=== PATIENT | male | born 1950 | race Caucasian/White ===

== ENCOUNTER 2019-08-23 05:43 | Inpatient (IN) ==
[2019-08-23] MEDS ORDERED: DIAZEPAM 5 MG TABLET PO ONE (05:53)
[2019-08-23] MEDS ORDERED: MAGNESIUM SULF RIDER 2 GM in PREMIX 1 EACH IV PRN (05:53)
[2019-08-23] MEDS ORDERED: diphenhydrAMINE CAP 25 MG CAPSULE PO ONE (05:53)
[2019-08-23] MEDS ORDERED: POTASSIUM CHLORIDE RIDER 10 MEQ in PREMIX 1 EACH IV PRN (05:53)
[2019-08-23] MEDS ORDERED: ASPIRIN 325 MG TABLET PO ONE (05:53)
[2019-08-23] MEDS ORDERED: DEXTROSE 5% NACL 0.45% 1,000 ML IV SCH (06:00)
[2019-08-23] MEDS ORDERED: DIAZEPAM 5 MG TABLET ONE (06:21)
[2019-08-23] MEDS ORDERED: diphenhydrAMINE CAP 25 MG CAPSULE ONE (06:22)
[2019-08-23] MEDS ORDERED: HEPARIN/NACL 0.9% 2 UNITS/ML 1,000 ML IV ONE (06:56)
[2019-08-23] MEDS ORDERED: LIDOCAINE 1%/EPI INJ 20 ML VIAL ONE (06:56)
[2019-08-23] MEDS ORDERED: MIDAZOLAM 2 MG/2 ML VIAL ONE (07:36)
[2019-08-23] MEDS ORDERED: fentaNYL 100 MCG/2 ML VIAL ONE (07:37)
[2019-08-23] MEDS ORDERED: NITROGLYCERIN SL 0.4 MG TABLET SL PRN (08:27)
[2019-08-23] MEDS ORDERED: INFLUENZA VIRUS VACCINE 0.5 ML SYRINGE IM ONE (09:29)
[2019-08-23] MEDS: ASPIRIN EC 81 MG TABLET PO SCH (16:10)
[2019-08-23] MEDS: METOPROLOL TARTRATE 25 MG TABLET PO SCH ×2 (16:15→21:30)
[2019-08-23] MEDS ORDERED: MAGNESIUM HYDROXIDE SUSP 30 ML UDCUP PO PRN (16:45)
[2019-08-23] MEDS ORDERED: diphenhydrAMINE CAP 25 MG CAPSULE PO PRN (16:45)
[2019-08-23] MEDS ORDERED: DILTIAZEM CD 240 MG CAPSULE PO SCH (19:00)
[2019-08-23] MEDS ORDERED: LOSARTAN/HCTZ 50-12.5 MG TABLET PO SCH (19:00)
[2019-08-23] MEDS: HYDROmorphone 2 MG/1 ML VIAL IV PRN (20:37)
[2019-08-23] MEDS: LOSARTAN/HCTZ 50-12.5 MG TABLET PO SCH (21:29)
[2019-08-23] MEDS: DILTIAZEM CD 240 MG CAPSULE PO SCH (21:29)
[2019-08-23] MEDS: ATORVASTATIN 80 MG TABLET PO SCH (21:30)
[2019-08-24] MEDS: HYDROmorphone 2 MG/1 ML VIAL IV PRN ×2 (00:21→04:21)
[2019-08-24 04:21] LABS: Basophils # 0.1 10*3/uL (0.0-0.2); Basophils % 0.7 % (0.0-0.8); Eosinophils # 0.7 10*3/uL (0.0-0.87); Eosinophils % 6.5 % (0.00-10.9); Hematocrit 43.3 VOL% (42.0-52.0); Hemoglobin 14.1 GM/DL (14.0-18.0); Immature Granulocytes % 0.3 %; Immature Granulocytes Absolute 0.03 #; Lymphocytes # 2.4 10*3/uL (1.4-4.0); Lymphocytes % 22.4 % (21.2-54.2); Mean Corpuscular HGB Conc 32.6 GM/DL (32-36); Mean Corpuscular Volume 90.4 FL (87-102); Mean Platelet Volume 10.9 FL (9.6-12.0); Monocytes % 7.8 % (1.7-12.7); Neutrophils % 62.3 % (38.7-73.9); Platelet Count 244 T/CUMM (130-400); Red Blood Count 4.79 MC/CUMM (3.8-5.5); Red Cell Distribution Width 14.2 % (9.3-17.3); White Blood Count 10.8 T/CUMM (4-12)
[2019-08-24 04:45] LABS: Osmolality,Calculated 278.5 MOS/KG (273-304)
[2019-08-24] MEDS ORDERED: GLUCAGON 1 MG VIAL IM PRN (06:10)
[2019-08-24] MEDS ORDERED: DEXTROSE 50% 25 GM/50 ML VIAL IV PRN (06:10)
[2019-08-24] MEDS ORDERED: CEFUROXIME INJ 1,500 MG in SYRINGE 1 EACH IV ONE (06:10)
[2019-08-24 06:35] LABS: ABG Base Excess 3.7 MMOL/L (-2.5-2.5); ABG HCO3 27.5 MMOL/L (20-26); ABG Oxygen Saturation 91.2 % (95-100); ABG PH 7.417 (7.35-7.45); ABG PO2 60.8 MM HG (80-95); ABG TCO2 24.8 MMOL/L (23-27); Allen Test Positive; Pt O2 Delivery Device Room Air
[2019-08-24] MEDS: CHLORHEXIDINE 0.12% ORAL RINSE 60 ML BOTTLE SWISH/SPIT SCH ×2 (09:01→21:34)
[2019-08-24] MEDS: ASPIRIN EC 81 MG TABLET PO SCH (09:01)
[2019-08-24] MEDS: CHLORHEXIDINE 4% SOLN 118 ML BOTTLE TOP SCH ×3 (09:01→21:35)
[2019-08-24] MEDS: METOPROLOL TARTRATE 25 MG TABLET PO SCH ×2 (09:01→21:33)
[2019-08-24] MEDS: DILTIAZEM CD 240 MG CAPSULE PO SCH (21:32)
[2019-08-24] MEDS: ATORVASTATIN 80 MG TABLET PO SCH (21:33)
[2019-08-24] MEDS: LOSARTAN/HCTZ 50-12.5 MG TABLET PO SCH (21:33)
[2019-08-25] MEDS ORDERED: VANCOMYCIN 500 MG VIAL ONE (04:20)
[2019-08-25] MEDS ORDERED: PAPAVERINE 60 MG/2 ML VIAL ONE (04:20)
[2019-08-25] MEDS ORDERED: VANCOMYCIN 1,000 MG VIAL ONE (04:21)
[2019-08-25 04:43] LABS: Basophils # 0.1 10*3/uL (0.0-0.2); Basophils % 0.4 % (0.0-0.8); Eosinophils # 0.7 10*3/uL (0.0-0.87); Hematocrit 45.3 VOL% (42.0-52.0); Hemoglobin 14.6 GM/DL (14.0-18.0); Immature Granulocytes % 0.4 %; Immature Granulocytes Absolute 0.05 #; Lymphocytes # 2.1 10*3/uL (1.4-4.0); Lymphocytes % 17.4 % (21.2-54.2); Mean Corpuscular HGB Conc 32.2 GM/DL (32-36); Mean Corpuscular Volume 89.9 FL (87-102); Mean Platelet Volume 10.6 FL (9.6-12.0); Monocytes % 8.8 % (1.7-12.7); Platelet Count 254 T/CUMM (130-400); Red Blood Count 5.04 MC/CUMM (3.8-5.5); Red Cell Distribution Width 14.2 % (9.3-17.3); White Blood Count 11.9 T/CUMM (4-12)
[2019-08-25 05:00] LABS: Calcium 9.4 MG/DL (8.5-10.1); Osmolality,Calculated 278.5 MOS/KG (273-304)
[2019-08-25] MEDS ORDERED: DIAZEPAM 5 MG TABLET PO ONE (05:00)
[2019-08-25] MEDS ORDERED: FAMOTIDINE 20 MG TABLET PO ONE (05:00)
[2019-08-25] MEDS ORDERED: SUFentanil 250 MCG/5 ML AMP ONE (05:57)
[2019-08-25] MEDS ORDERED: MIDAZOLAM 10 MG/2 ML VIAL ONE (05:58)
[2019-08-25] MEDS: METOPROLOL TARTRATE 25 MG TABLET PO SCH ×2 (06:08→09:36)
[2019-08-25] MEDS: CEFUROXIME INJ 1,500 MG in SYRINGE 1 EACH IV ONE ×2 (07:34→09:36)
[2019-08-25 07:52] LABS: ABG Base Excess 0.8 MMOL/L (-2.5-2.5); ABG HCO3 26.4 MMOL/L (20-26); ABG Oxygen Saturation 99.8 % (95-100); ABG PCO2 45.8 MM HG (35-48); ABG PH 7.378 (7.35-7.45); ABG PO2 429.1 MM HG (80-95); ABG TCO2 27.8 MMOL/L (23-27); Glucose Heart Surgery 107 MG/DL (74-106); Hemoglobin Heart Surgery 14.4 G/DL (14.0-18.0); Ionized Calcium Arterial 1.18 MMOL/L (1.21-1.46); PCO2 Patient Temp Arterial 45.8 MMHG; PH Patient Temp Arterial 7.378; PO2 Patient Temp Arterial 429.1 MM HG; Patient Temperature 37 CELCIUS; Potassium Heart/CVR 3.6 MMOL/L (3.5-5.1); Sodium Heart/CVR 136 MMOL/L (135-145)
[2019-08-25 08:53] LABS: Apearance,Urine CLEAR (Clear); Bilirubin,Urine Negative (Negative); Blood, Urine Negative (Negative); Glucose,Urine (UA) Negative (Negative); Ketones,Urine Negative (Negative); Mucus,Urine Occasional /LPF (Occasional); Nitrite,Urine Negative (Negative); Protein,Urine Negative; RBC,Urine 1 /HPF (0-4); Urine Color Yellow (Yellow); Urine Specific Gravity 1.012 (1.001-1.035); Urine Urobilinogen < 2.0 EU/DL (0.2-1.0); WBC,Urine 3 /HPF (0-6)
[2019-08-25] MEDS ORDERED: POTASSIUM CHLORIDE RIDER 100 ML IV ONE (08:59)
[2019-08-25] MEDS ORDERED: NITROPRUSSIDE 50 MG/2 ML VIAL ONE (08:59)
[2019-08-25] MEDS ORDERED: CALCIUM CHLORIDE 1,000 MG/10 ML SYRINGE IV ONE (08:59)
[2019-08-25] MEDS ORDERED: PHENYLEPHRINE DRIP 40 MG/250 ML PREMIX IV ONE (08:59)
[2019-08-25] MEDS ORDERED: SODIUM BICARBONATE 50 MEQ/50 ML VIAL IV ONE ×2 (08:59→10:24)
[2019-08-25] MEDS ORDERED: ALBUMIN 5% 12.5 GM/250 ML VIAL IV ONE ×2 (09:00)
[2019-08-25] MEDS ORDERED: AMINOCAPROIC ACID 5,000 MG/20 ML VIAL ONE (09:05)
[2019-08-25] MEDS ORDERED: PHENYLEPHRINE DRIP 20 MG/250 ML PREMIX IV ONE (09:05)
[2019-08-25] MEDS ORDERED: MINERAL OIL/PETROLATUM OPH OINT 3.5 GM TUBE ONE (09:05)
[2019-08-25] MEDS ORDERED: HEPARIN/NACL 0.9% 2 UNITS/ML 500 ML IV ONE (09:05)
[2019-08-25] MEDS ORDERED: NITROGLYCERIN DRIP 0 MG/0 ML BOTTLE IV ONE (09:05)
[2019-08-25] MEDS ORDERED: CALCIUM CHLORIDE 1,000 MG/10 ML VIAL IV ONE (09:05)
[2019-08-25] MEDS ORDERED: PHENYLEPHRINE 1 MG/10 ML SYRINGE IV ONE (09:06)
[2019-08-25 09:09] LABS: Hemoglobin Heart Surgery 9.9 G/DL (14.0-18.0); PCO2 Patient Temp Venous 40.2 MM HG; PH Patient Temp Venous 7.43; PO2 Patient Temp Venous 45.1 MM HG; Potassium Heart/CVR 4.3 MMOL/L (3.5-5.1); VBG Base Excess 1.6 MEQ/L (0-4); VBG HCO3 26.3 MEQ/L (24-28); VBG Oxygen Saturation 83.8 %; VBG PH 7.415; VBG PO2 48.4 MMHG (17-40)
[2019-08-25] MEDS: SODIUM CHLORIDE 0.9% 1,000 ML IV SCH (09:36)
[2019-08-25] MEDS: ASPIRIN EC 81 MG TABLET PO SCH (09:36)
[2019-08-25] MEDS: CHLORHEXIDINE 0.12% ORAL RINSE 60 ML BOTTLE SWISH/SPIT SCH (09:37)
[2019-08-25 09:40] LABS: Hemoglobin Heart Surgery 10.8 G/DL (14.0-18.0); PH Patient Temp Venous 7.502; VBG Base Excess 2.1 MEQ/L (0-4); VBG Oxygen Saturation 87.2 %; VBG PCO2 37.6 MMHG (41-51); VBG PH 7.457; VBG PO2 51.8 MMHG (17-40)
[2019-08-25] MEDS ORDERED: DEXTROSE 5% KCL 20 MEQ 20 MEQ/1,000 ML BAG IV ONE (10:23)
[2019-08-25] MEDS ORDERED: LIDOCAINE 2% 5 ML VIAL ONE (10:23)
[2019-08-25] MEDS ORDERED: MANNITOL 100 GM/500 ML BAG IV ONE (10:23)
[2019-08-25] MEDS ORDERED: ALBUMIN 25% 25 GM/100 ML VIAL IV ONE (10:24)
[2019-08-25] MEDS ORDERED: PROTAMINE SULFATE 50 MG/5 ML VIAL IV ONE ×3 (10:24→11:37)
[2019-08-25] MEDS ORDERED: MAGNESIUM SULFATE 5 GM/10 ML VIAL IV ONE (10:24)
[2019-08-25] MEDS ORDERED: FUROSEMIDE 20 MG/2 ML VIAL ONE (10:24)
[2019-08-25] MEDS ORDERED: PROTAMINE SULFATE 250 MG/25 ML VIAL IV ONE (10:24)
[2019-08-25] MEDS ORDERED: HEPARIN 10,000 UNIT/10 ML VIAL ONE (10:24)
[2019-08-25] MEDS ORDERED: methylPREDNISolone SOD SUC 1,000 MG/8 ML VIAL ONE (10:24)
[2019-08-25 10:37] LABS: ABG Base Excess -0.5 MMOL/L (-2.5-2.5); ABG Oxygen Saturation 98.8 % (95-100); ABG PCO2 40.1 MM HG (35-48); ABG PH 7.391 (7.35-7.45); ABG TCO2 21.6 MMOL/L (23-27); Glucose Heart Surgery 187 MG/DL (74-106); Hematocrit Heart Surgery 36.2 PERCENT (42-52); Hemoglobin Heart Surgery 11.7 G/DL (14.0-18.0); Ionized Calcium Arterial 1.29 MMOL/L (1.21-1.46); PCO2 Patient Temp Arterial 40.1 MMHG; PH Patient Temp Arterial 7.391; Patient Temperature 37 CELCIUS; Potassium Heart/CVR 3.7 MMOL/L (3.5-5.1); Sodium Heart/CVR 133 MMOL/L (135-145)
[2019-08-25] MEDS ORDERED: AMIODARONE 450 MG/9 ML VIAL IV ONE (11:01)
[2019-08-25] MEDS ORDERED: AMIODARONE INJ 450 MG in DEXTROSE 5% 241 ML IV SCH (11:15)
[2019-08-25] MEDS: PHENYLEPHRINE DRIP 40 MG/250 ML PREMIX IV PRN (11:16)
[2019-08-25] MEDS: LACTATED RINGERS 1,000 ML IV PRN ×3 (11:20→12:52)
[2019-08-25] MEDS ORDERED: DEXTROSE 10% 250 ML BAG IV PRN ×2 (11:37)
[2019-08-25] MEDS ORDERED: CALCIUM CHLORIDE 1,000 MG/10 ML SYRINGE IV PRN (11:37)
[2019-08-25] MEDS ORDERED: INSULIN REGULAR DRIP 100 ML IV SCH (11:37)
[2019-08-25] MEDS ORDERED: INSULIN REGULAR 100 UNIT/ML IV ONE (11:37)
[2019-08-25] MEDS ORDERED: MORPHINE 4 MG/1 ML VIAL IV PRN (11:37)
[2019-08-25] MEDS ORDERED: MAGNESIUM SULF RIDER 2 GM in PREMIX 1 EACH IV PRN (11:37)
[2019-08-25] MEDS ORDERED: LACTATED RINGERS 250 ML IV PRN (11:37)
[2019-08-25] MEDS ORDERED: MAGNESIUM SULF RIDER 4 GM in PREMIX 1 EACH IV PRN (11:37)
[2019-08-25] MEDS ORDERED: MIDAZOLAM 10 MG/2 ML VIAL IV PRN (11:37)
[2019-08-25] MEDS ORDERED: KETOROLAC 30 MG/1 ML VIAL IV SCH (11:37)
[2019-08-25] MEDS ORDERED: ACETAMINOPHEN 650 MG SUPP RECTAL PRN (11:37)
[2019-08-25] MEDS ORDERED: NITROPRUSSIDE 100 MG in DEXTROSE 5% 250 ML IV PRN (11:37)
[2019-08-25] MEDS ORDERED: SODIUM CHLORIDE 0.45% 1,000 ML IV SCH ×2 (11:37)
[2019-08-25] MEDS ORDERED: MORPHINE 10 MG/1 ML VIAL IV PRN (11:37)
[2019-08-25] MEDS ORDERED: INSULIN REGULAR 100 UNIT/ML IV PRN (11:37)
[2019-08-25] MEDS ORDERED: ONDANSETRON 4 MG/2 ML VIAL IV PRN (11:37)
[2019-08-25] MEDS ORDERED: VECURONIUM 10 MG VIAL IV PRN ×2 (11:37)
[2019-08-25] MEDS: ALBUMIN 5% 12.5 GM in PREMIX 1 EACH IV PRN ×3 (11:40→23:00)
[2019-08-25 11:48] LABS: Basophils # 0.1 10*3/uL (0.0-0.2); Basophils % 0.2 % (0.0-0.8); Eosinophils # 0.3 10*3/uL (0.0-0.87); Eosinophils % 1.5 % (0.00-10.9); Hematocrit 35.1 VOL% (42.0-52.0); Hemoglobin 11.2 GM/DL (14.0-18.0); Immature Granulocytes % 1.1 %; Immature Granulocytes Absolute 0.24 #; Lymphocytes # 2.3 10*3/uL (1.4-4.0); Lymphocytes % 10.6 % (21.2-54.2); Mean Corpuscular HGB Conc 31.9 GM/DL (32-36); Mean Corpuscular Volume 91.2 FL (87-102); Mean Platelet Volume 10.6 FL (9.6-12.0); Monocytes % 5.9 % (1.7-12.7); Neutrophils % 80.7 % (38.7-73.9); Platelet Count 201 T/CUMM (130-400); Red Blood Count 3.85 MC/CUMM (3.8-5.5); Red Cell Distribution Width 14.2 % (9.3-17.3); White Blood Count 21.3 T/CUMM (4-12)
[2019-08-25 11:50] LABS: ABG Base Excess -0.7 MMOL/L (-2.5-2.5); ABG HCO3 23.8 MMOL/L (20-26); ABG Oxygen Saturation 97.9 % (95-100); ABG PCO2 37.6 MM HG (35-48); ABG PH 7.407 (7.35-7.45); ABG PO2 99.5 MM HG (80-95); ABG TCO2 21.1 MMOL/L (23-27); Glucose Heart Surgery 146 MG/DL (74-106); Hematocrit Heart Surgery 35.3 PERCENT (42-52); Hemoglobin Heart Surgery 11.5 G/DL (14.0-18.0); Potassium Heart/CVR 3.3 MMOL/L (3.5-5.1)
[2019-08-25] MEDS: POTASSIUM CHLORIDE RIDER 20 MEQ in PREMIX 1 EACH IV PRN ×4 (11:56→16:39)
[2019-08-25 11:57] LABS: INR 1.3; PT Patient Result 14.3 SECS (9.6-12.2); Partial Thromboplastin Time 27.1 SECS (20.8-36.0)
[2019-08-25] MEDS ORDERED: SEVOFLURANE 1 UNIT/15 MINUTE INH ONE (12:03)
[2019-08-25] MEDS ORDERED: GLYCOPYRROLATE 0.4 MG/2 ML VIAL ONE (12:04)
[2019-08-25] MEDS ORDERED: ETOMIDATE 40 MG/20 ML VIAL IV ONE (12:04)
[2019-08-25] MEDS ORDERED: AMIODARONE 150 MG/3 ML VIAL ONE (12:04)
[2019-08-25] MEDS ORDERED: VECURONIUM 10 MG VIAL IV ONE (12:04)
[2019-08-25] MEDS ORDERED: SODIUM CHLORIDE 0.9% 200 ML IV ONE (12:04)
[2019-08-25] MEDS ORDERED: SODIUM CHLORIDE 0.9% 250 ML IV ONE (12:04)
[2019-08-25] MEDS ORDERED: SODIUM CHLORIDE 0.9% 1,000 ML IV ONE (12:04)
[2019-08-25] MEDS ORDERED: LACTATED RINGERS 1,000 ML IV ONE (12:04)
[2019-08-25 12:13] LABS: CKMB % 7.8 %
[2019-08-25 12:15] LABS: Troponin I 7.1 NG/ML (0.00-0.045)
[2019-08-25 12:17] LABS: Albumin 2.8 G/DL (3.4-5.0); Bilirubin,Total 1.3 MG/DL (0.2-1.0); Osmolality,Calculated 280.5 MOS/KG (273-304); Total Protein 5.3 G/DL (6.4-8.3)
[2019-08-25 12:40] LABS: Band Neutrophils 2 % (0-10); Eosinophils 1 % (0-10); Lymphocytes 10 % (20-55); Segmented Neutrophils 84 % (50-85)
[2019-08-25 12:41] LABS: Hypochromasia 1+
[2019-08-25 12:42] LABS: Microcytosis 1+; Platelet Estimate Decreased; Reactive Lymphocytes Slight; Total Cells Counted 100
[2019-08-25 13:20] LABS: ABG Base Excess 0.4 MMOL/L (-2.5-2.5); ABG HCO3 24.7 MMOL/L (20-26); ABG Oxygen Saturation 97.8 % (95-100); ABG PCO2 33.4 MM HG (35-48); ABG PH 7.458 (7.35-7.45); ABG PO2 90.7 MM HG (80-95); ABG TCO2 20.9 MMOL/L (23-27); Glucose Heart Surgery 163 MG/DL (74-106); Hematocrit Heart Surgery 36.6 PERCENT (42-52); Hemoglobin Heart Surgery 11.9 G/DL (14.0-18.0); Potassium Heart/CVR 3.8 MMOL/L (3.5-5.1)
[2019-08-25] MEDS: POTASSIUM CHLORIDE RIDER 10 MEQ in PREMIX 1 EACH IV PRN ×2 (14:05→17:12)
[2019-08-25] MEDS: MIDAZOLAM 2 MG/2 ML VIAL IV PRN ×2 (14:58→16:35)
[2019-08-25 16:21] LABS: ABG Base Excess -0.8 MMOL/L (-2.5-2.5); ABG HCO3 23.7 MMOL/L (20-26); ABG Oxygen Saturation 97.6 % (95-100); ABG PCO2 37.7 MM HG (35-48); ABG PH 7.405 (7.35-7.45); ABG PO2 94.6 MM HG (80-95); ABG TCO2 21.1 MMOL/L (23-27); Glucose Heart Surgery 209 MG/DL (74-106); Hematocrit Heart Surgery 35.1 PERCENT (42-52); Hemoglobin Heart Surgery 11.4 G/DL (14.0-18.0); Potassium Heart/CVR 3.5 MMOL/L (3.5-5.1)
[2019-08-25] MEDS ORDERED: DEXMEDETOMIDINE 200 MCG in SODIUM CHLORIDE 0.9% 48 ML IV PRN (16:43)
[2019-08-25] MEDS: CEFUROXIME INJ 1,500 MG in SYRINGE 1 EACH IV SCH (18:45)
[2019-08-25] MEDS: AMIODARONE INJ 450 MG in DEXTROSE 5% 241 ML IV SCH ×2 (18:48→21:43)
[2019-08-25 19:46] LABS: ABG Base Excess -2.1 MMOL/L (-2.5-2.5); ABG HCO3 22.6 MMOL/L (20-26); ABG Oxygen Saturation 97.1 % (95-100); ABG PCO2 38.2 MM HG (35-48); ABG PO2 90.2 MM HG (80-95); ABG TCO2 20.2 MMOL/L (23-27); Glucose Heart Surgery 181 MG/DL (74-106); Hematocrit Heart Surgery 36.1 PERCENT (42-52); Hemoglobin Heart Surgery 11.7 G/DL (14.0-18.0); Potassium Heart/CVR 3.7 MMOL/L (3.5-5.1)
[2019-08-25 20:09] LABS: CKMB % 5.7 %
[2019-08-25 20:12] LABS: Troponin I 8.16 NG/ML (0.00-0.045)
[2019-08-25] MEDS ORDERED: CHLORHEXIDINE 0.12% ORAL RINSE 60 ML BOTTLE SWISH/SPIT SCH (21:00)
[2019-08-25] MEDS ORDERED: FUROSEMIDE 40 MG/4 ML VIAL IV PRN (22:35)
[2019-08-25 23:41] LABS: ABG Base Excess -2.1 MMOL/L (-2.5-2.5); ABG HCO3 21.8 MMOL/L (20-26); ABG Oxygen Saturation 97.3 % (95-100); ABG PCO2 34.2 MM HG (35-48); ABG PH 7.422 (7.35-7.45); ABG PO2 99.3 MM HG (80-95); ABG TCO2 22.8 MMOL/L (23-27); Glucose Heart Surgery 149 MG/DL (74-106); Hemoglobin Heart Surgery 11.4 G/DL (14.0-18.0); Potassium Heart/CVR 3.5 MMOL/L (3.5-5.1)
[2019-08-26] MEDS: PHENYLEPHRINE DRIP 40 MG/250 ML PREMIX IV PRN (00:35)
[2019-08-26 01:05] LABS: ABG Base Excess -2.4 MMOL/L (-2.5-2.5); ABG HCO3 22.1 MMOL/L (20-26); ABG Oxygen Saturation 93.6 % (95-100); ABG PCO2 36.7 MM HG (35-48); ABG PH 7.397 (7.35-7.45); ABG PO2 70.8 MM HG (80-95); ABG TCO2 23.2 MMOL/L (23-27); Glucose Heart Surgery 155 MG/DL (74-106); Hemoglobin Heart Surgery 11.4 G/DL (14.0-18.0); Potassium Heart/CVR 3.8 MMOL/L (3.5-5.1)
[2019-08-26] MEDS: POTASSIUM CHLORIDE RIDER 10 MEQ in PREMIX 1 EACH IV PRN (02:56)
[2019-08-26 03:59] LABS: ABG Base Excess -0.8 MMOL/L (-2.5-2.5); ABG HCO3 23.7 MMOL/L (20-26); ABG Oxygen Saturation 95.2 % (95-100); ABG PCO2 37.7 MM HG (35-48); ABG PH 7.404 (7.35-7.45); ABG PO2 74.1 MM HG (80-95); ABG TCO2 21.3 MMOL/L (23-27); Glucose Heart Surgery 124 MG/DL (74-106); Hematocrit Heart Surgery 33.4 PERCENT (42-52); Hemoglobin Heart Surgery 10.8 G/DL (14.0-18.0); Potassium Heart/CVR 3.4 MMOL/L (3.5-5.1)
[2019-08-26] MEDS ORDERED: POTASSIUM CHLORIDE RIDER 100 ML IV ONE (04:15)
[2019-08-26] MEDS: POTASSIUM CHLORIDE RIDER 20 MEQ in PREMIX 1 EACH IV PRN ×3 (04:16→04:51)
[2019-08-26 04:29] LABS: Basophils % 0.1 % (0.0-0.8); Hematocrit 33.2 VOL% (42.0-52.0); Hemoglobin 10.5 GM/DL (14.0-18.0); Immature Granulocytes % 0.6 %; Immature Granulocytes Absolute 0.13 #; Lymphocytes # 1.2 10*3/uL (1.4-4.0); Lymphocytes % 5.9 % (21.2-54.2); Mean Corpuscular HGB Conc 31.6 GM/DL (32-36); Mean Corpuscular Volume 91.5 FL (87-102); Mean Platelet Volume 10.9 FL (9.6-12.0); Monocytes % 4.4 % (1.7-12.7); Platelet Count 205 T/CUMM (130-400); Red Blood Count 3.63 MC/CUMM (3.8-5.5); Red Cell Distribution Width 14.1 % (9.3-17.3); White Blood Count 20.8 T/CUMM (4-12)
[2019-08-26 04:51] LABS: Albumin 3.4 G/DL (3.4-5.0); Bilirubin,Direct 0.22 MG/DL (0.0-0.20); Bilirubin,Total 1.1 MG/DL (0.2-1.0); Calcium 8.2 MG/DL (8.5-10.1); Osmolality,Calculated 282.4 MOS/KG (273-304); Total Protein 6.2 G/DL (6.4-8.3)
[2019-08-26 04:52] LABS: CKMB % 6.1 %
[2019-08-26 04:54] LABS: Lymphocytes 4 % (20-55); Platelet Estimate Adequate; Segmented Neutrophils 94 % (50-85); Total Cells Counted 100
[2019-08-26 05:16] LABS: Troponin I 4.8 NG/ML (0.00-0.045)
[2019-08-26] MEDS: CEFUROXIME INJ 1,500 MG in SYRINGE 1 EACH IV SCH (06:51)
[2019-08-26] MEDS ORDERED: MAGNESIUM SULF RIDER 4 GM in PREMIX 1 EACH IV PRN (07:29)
[2019-08-26] MEDS ORDERED: GLUCAGON 1 MG VIAL IM PRN ×2 (07:29)
[2019-08-26] MEDS ORDERED: ZALEPLON 5 MG CAPSULE PO PRN (07:29)
[2019-08-26] MEDS ORDERED: DEXTROSE 50% 25 GM/50 ML VIAL IV PRN (07:29)
[2019-08-26] MEDS ORDERED: DEXTROSE 10% 250 ML BAG IV PRN (07:29)
[2019-08-26] MEDS ORDERED: MAGNESIUM HYDROXIDE SUSP 30 ML UDCUP PO PRN (07:29)
[2019-08-26] MEDS ORDERED: ACETAMINOPHEN 325 MG TABLET PO PRN (07:29)
[2019-08-26] MEDS ORDERED: MAGNESIUM SULF RIDER 2 GM in PREMIX 1 EACH IV PRN (07:29)
[2019-08-26] MEDS ORDERED: ALUMINUM/MAGNES/SIMETH MAX STR 30 ML UDCUP PO PRN (07:29)
[2019-08-26] MEDS ORDERED: ONDANSETRON 4 MG/2 ML VIAL IV PRN (07:29)
[2019-08-26] MEDS: SODIUM CHLOR 0.45% KCL 20 MEQ 20 MEQ/1,000 ML BAG IV SCH (08:35)
[2019-08-26] MEDS: DOCUSATE SODIUM 100 MG CAPSULE PO SCH (08:35)
[2019-08-26] MEDS: PANTOPRAZOLE 40 MG TABLET PO SCH (08:35)
[2019-08-26] MEDS: ASPIRIN EC 325 MG TABLET PO SCH (08:35)
[2019-08-26] MEDS: KETOROLAC 30 MG/1 ML VIAL IV SCH ×3 (08:36→20:50)
[2019-08-26] MEDS: INSULIN REGULAR 100 UNIT/ML SUBCUT SCH ×4 (08:39→20:49)
[2019-08-26] MEDS: oxyCODONE/ACETAMINOPHEN 5-325 MG TABLET PO PRN (09:01)
[2019-08-26] MEDS: FERROUS SULFATE 325 MG TABLET PO SCH (09:03)
[2019-08-26] MEDS: CHLORHEXIDINE 0.12% ORAL RINSE 60 ML BOTTLE SWISH/SPIT SCH ×2 (09:04→20:49)
[2019-08-26] MEDS: POTASSIUM CHLORIDE 20 MEQ TABLET PO PRN ×2 (12:33→13:28)
[2019-08-26] MEDS: ASCORBIC ACID 500 MG TABLET PO SCH ×2 (13:28→20:50)
[2019-08-26] MEDS: AMIODARONE INJ 450 MG in DEXTROSE 5% 241 ML IV SCH (15:28)
[2019-08-26] MEDS ORDERED: CEFUROXIME INJ 1,500 MG in SYRINGE 1 EACH IV ONE (19:00)
[2019-08-26] MEDS: ATORVASTATIN 40 MG TABLET PO SCH (20:50)
[2019-08-26] MEDS ORDERED: ATORVASTATIN 20 MG TABLET PO SCH (21:00)
[2019-08-27] MEDS: INSULIN REGULAR 100 UNIT/ML SUBCUT SCH ×5 (00:11→20:09)
[2019-08-27] MEDS: KETOROLAC 30 MG/1 ML VIAL IV SCH ×4 (02:36→20:46)
[2019-08-27] MEDS: AMIODARONE INJ 450 MG in DEXTROSE 5% 241 ML IV SCH (02:37)
[2019-08-27 05:41] LABS: Basophils % 0.1 % (0.0-0.8); Hematocrit 26.4 VOL% (42.0-52.0); Hemoglobin 8.3 GM/DL (14.0-18.0); Immature Granulocytes % 0.7 %; Immature Granulocytes Absolute 0.12 #; Lymphocytes # 1.4 10*3/uL (1.4-4.0); Lymphocytes % 7.3 % (21.2-54.2); Mean Corpuscular HGB Conc 31.4 GM/DL (32-36); Mean Corpuscular Volume 93.6 FL (87-102); Mean Platelet Volume 11.1 FL (9.6-12.0); Monocytes % 7.5 % (1.7-12.7); Neutrophils % 84.4 % (38.7-73.9); Platelet Count 148 T/CUMM (130-400); Red Blood Count 2.82 MC/CUMM (3.8-5.5); Red Cell Distribution Width 14.7 % (9.3-17.3); White Blood Count 18.4 T/CUMM (4-12)
[2019-08-27] MEDS ORDERED: FUROSEMIDE 40 MG/4 ML VIAL IV ONE (06:00)
[2019-08-27 06:23] LABS: Alanine Aminotransferase 21 U/L (16-61); Albumin 2.7 G/DL (3.4-5.0); Alkaline Phosphatase 61 U/L (45-117); Aspartate Amino Transferase 22 U/L (0-37); Bilirubin,Indirect 0.7 MG/DL (0.0-1.0); Blood Urea Nitrogen 30 MG/DL (7-18); Calcium 7.9 MG/DL (8.5-10.1); Estimated Glom Filtration Rate 106 ML/MIN; Glucose 107 MG/DL (74-106); Osmolality,Calculated 284.4 MOS/KG (273-304); Total Protein 5.4 G/DL (6.4-8.3)
[2019-08-27] MEDS: ASCORBIC ACID 500 MG TABLET PO SCH ×2 (08:57→20:45)
[2019-08-27] MEDS: ASPIRIN EC 325 MG TABLET PO SCH (08:58)
[2019-08-27] MEDS: AMIODARONE 200 MG TABLET PO SCH ×2 (08:58→20:45)
[2019-08-27] MEDS: FERROUS SULFATE 325 MG TABLET PO SCH (08:58)
[2019-08-27] MEDS: PANTOPRAZOLE 40 MG TABLET PO SCH (08:58)
[2019-08-27] MEDS: DOCUSATE SODIUM 100 MG CAPSULE PO SCH (08:58)
[2019-08-27] MEDS: CHLORHEXIDINE 0.12% ORAL RINSE 60 ML BOTTLE SWISH/SPIT SCH ×2 (09:02→20:47)
[2019-08-27] MEDS: SODIUM CHLOR 0.45% KCL 20 MEQ 20 MEQ/1,000 ML BAG IV SCH (09:04)
[2019-08-27] MEDS: ATORVASTATIN 40 MG TABLET PO SCH (20:45)
[2019-08-28] MEDS: KETOROLAC 30 MG/1 ML VIAL IV SCH ×4 (02:38→21:23)
[2019-08-28 05:29] LABS: Basophils % 0.2 % (0.0-0.8); Eosinophils # 0.2 10*3/uL (0.0-0.87); Eosinophils % 1.2 % (0.00-10.9); Hematocrit 26.5 VOL% (42.0-52.0); Hemoglobin 8.3 GM/DL (14.0-18.0); Immature Granulocytes % 0.5 %; Immature Granulocytes Absolute 0.06 #; Lymphocytes # 2.1 10*3/uL (1.4-4.0); Lymphocytes % 16.3 % (21.2-54.2); Mean Corpuscular HGB Conc 31.3 GM/DL (32-36); Mean Platelet Volume 11.3 FL (9.6-12.0); Monocytes % 9.8 % (1.7-12.7); Platelet Count 162 T/CUMM (130-400); Red Blood Count 2.85 MC/CUMM (3.8-5.5); White Blood Count 12.9 T/CUMM (4-12)
[2019-08-28 05:58] LABS: Alanine Aminotransferase 30 U/L (16-61); Albumin 2.7 G/DL (3.4-5.0); Alkaline Phosphatase 67 U/L (45-117); Aspartate Amino Transferase 26 U/L (0-37); Bilirubin,Indirect 0.6 MG/DL (0.0-1.0); Blood Urea Nitrogen 27 MG/DL (7-18); Calcium 7.9 MG/DL (8.5-10.1); Estimated Glom Filtration Rate 106 ML/MIN; Glucose 93 MG/DL (74-106); Osmolality,Calculated 287.1 MOS/KG (273-304); Total Protein 5.6 G/DL (6.4-8.3)
[2019-08-28] MEDS: INSULIN REGULAR 100 UNIT/ML SUBCUT SCH ×2 (08:28→12:23)
[2019-08-28] MEDS: DOCUSATE SODIUM 100 MG CAPSULE PO SCH (08:49)
[2019-08-28] MEDS: ASCORBIC ACID 500 MG TABLET PO SCH ×2 (08:49→21:23)
[2019-08-28] MEDS: FERROUS SULFATE 325 MG TABLET PO SCH (08:50)
[2019-08-28] MEDS: ASPIRIN EC 325 MG TABLET PO SCH (08:50)
[2019-08-28] MEDS: AMIODARONE 200 MG TABLET PO SCH ×2 (08:50→21:22)
[2019-08-28] MEDS: POTASSIUM CHLORIDE 20 MEQ TABLET PO PRN ×2 (08:50→11:19)
[2019-08-28] MEDS: PANTOPRAZOLE 40 MG TABLET PO SCH (08:50)
[2019-08-28] MEDS: CHLORHEXIDINE 0.12% ORAL RINSE 60 ML BOTTLE SWISH/SPIT SCH ×2 (08:54→21:23)
[2019-08-28] MEDS: oxyCODONE/ACETAMINOPHEN 5-325 MG TABLET PO PRN (18:17)
[2019-08-28] MEDS: ATORVASTATIN 40 MG TABLET PO SCH (21:23)
[2019-08-29] MEDS: KETOROLAC 30 MG/1 ML VIAL IV SCH (03:40)
[2019-08-29] MEDS: ASPIRIN EC 325 MG TABLET PO SCH (08:23)
[2019-08-29] MEDS: DOCUSATE SODIUM 100 MG CAPSULE PO SCH (08:24)
[2019-08-29] MEDS: AMIODARONE 200 MG TABLET PO SCH ×2 (08:24→22:21)
[2019-08-29] MEDS: PANTOPRAZOLE 40 MG TABLET PO SCH (08:25)
[2019-08-29] MEDS: FERROUS SULFATE 325 MG TABLET PO SCH (08:25)
[2019-08-29] MEDS: ASCORBIC ACID 500 MG TABLET PO SCH ×2 (08:26→22:20)
[2019-08-29] MEDS: CHLORHEXIDINE 0.12% ORAL RINSE 60 ML BOTTLE SWISH/SPIT SCH ×2 (08:27→22:23)
[2019-08-29] MEDS: carvediloL 3.125 MG TABLET PO SCH (22:21)
[2019-08-29] MEDS: ATORVASTATIN 40 MG TABLET PO SCH (22:21)
[2019-08-30 04:18] LABS: Basophils % 0.3 % (0.0-0.8); Eosinophils # 0.8 10*3/uL (0.0-0.87); Eosinophils % 5.8 % (0.00-10.9); Hematocrit 29.9 VOL% (42.0-52.0); Hemoglobin 9.5 GM/DL (14.0-18.0); Immature Granulocytes % 0.7 %; Immature Granulocytes Absolute 0.09 #; Lymphocytes # 2.1 10*3/uL (1.4-4.0); Lymphocytes % 15.6 % (21.2-54.2); Mean Corpuscular HGB Conc 31.8 GM/DL (32-36); Mean Corpuscular Volume 91.2 FL (87-102); Mean Platelet Volume 11.3 FL (9.6-12.0); Monocytes % 8.9 % (1.7-12.7); Neutrophils % 68.7 % (38.7-73.9); Platelet Count 250 T/CUMM (130-400); Red Blood Count 3.28 MC/CUMM (3.8-5.5); Red Cell Distribution Width 14.7 % (9.3-17.3); White Blood Count 13.3 T/CUMM (4-12)
[2019-08-30 04:41] LABS: Alanine Aminotransferase 57 U/L (16-61); Albumin 2.7 G/DL (3.4-5.0); Alkaline Phosphatase 81 U/L (45-117); Aspartate Amino Transferase 35 U/L (0-37); Bilirubin,Indirect 1.1 MG/DL (0.0-1.0); Blood Urea Nitrogen 15 MG/DL (7-18); Calcium 8.4 MG/DL (8.5-10.1); Estimated Glom Filtration Rate 111 ML/MIN; Glucose 101 MG/DL (74-106); Osmolality,Calculated 277.5 MOS/KG (273-304); Total Protein 5.8 G/DL (6.4-8.3)
[2019-08-30 04:44] LABS: Troponin I 0.315 NG/ML (0.00-0.045)
[2019-08-30 08:16] VITALS: BP 104/64
[2019-08-30] MEDS: ASPIRIN EC 325 MG TABLET PO SCH (08:25)
[2019-08-30] MEDS: DOCUSATE SODIUM 100 MG CAPSULE PO SCH (08:25)
[2019-08-30] MEDS: carvediloL 3.125 MG TABLET PO SCH (08:25)
[2019-08-30] MEDS: AMIODARONE 200 MG TABLET PO SCH (08:25)
[2019-08-30] MEDS: PANTOPRAZOLE 40 MG TABLET PO SCH (08:26)
[2019-08-30] MEDS: CHLORHEXIDINE 0.12% ORAL RINSE 60 ML BOTTLE SWISH/SPIT SCH (08:26)
[2019-08-30] MEDS: FERROUS SULFATE 325 MG TABLET PO SCH (08:26)
[2019-08-30] MEDS: ASCORBIC ACID 500 MG TABLET PO SCH (08:27)
== END 2019-08-30 09:47 | disposition home health service (06) | DRG 234 ==
LOC: N.CL 05:43 → N.TELES 09:09 → N.CVR 08-25 11:08 → N.TELES 08-26 09:32
PROVIDERS: ADMIT Internal Medicine Interventional Cardiology; ATTEND Internal Medicine Interventional Cardiology
PROC: CLCCHCL (ICD-10-PCS; 2019-08-23 07:45)

== ENCOUNTER 2019-09-03 16:13 | Inpatient (IN) ==
[2019-09-03 17:22] LABS: Basophils # 0.1 10*3/uL (0.0-0.2); Basophils % 0.3 % (0.0-0.8); Eosinophils # 0.4 10*3/uL (0.0-0.87); Hematocrit 31.1 VOL% (42.0-52.0); Hemoglobin 9.9 GM/DL (14.0-18.0); Immature Granulocytes % 0.8 %; Immature Granulocytes Absolute 0.11 #; Lymphocytes # 1.6 10*3/uL (1.4-4.0); Lymphocytes % 10.7 % (21.2-54.2); Mean Corpuscular HGB Conc 31.8 GM/DL (32-36); Mean Corpuscular Volume 91.7 FL (87-102); Mean Platelet Volume 9.8 FL (9.6-12.0); Monocytes % 8.6 % (1.7-12.7); Neutrophils % 76.6 % (38.7-73.9); Platelet Count 396 T/CUMM (130-400); Red Blood Count 3.39 MC/CUMM (3.8-5.5); Red Cell Distribution Width 15.3 % (9.3-17.3); White Blood Count 14.6 T/CUMM (4-12)
[2019-09-03 17:30] LABS: PT Patient Result 10.8 SECS (9.6-12.2); Partial Thromboplastin Time 25.3 SECS (20.8-36.0)
[2019-09-03 17:48] LABS: Troponin I 0.029 NG/ML (0.00-0.045)
[2019-09-03 17:53] LABS: Albumin 3.2 G/DL (3.4-5.0); Bilirubin,Total 0.9 MG/DL (0.2-1.0); Calcium 9.1 MG/DL (8.5-10.1); Osmolality,Calculated 279.4 MOS/KG (273-304); Total Protein 6.9 G/DL (6.4-8.3)
[2019-09-03 17:55] LABS: Prolactin 8.9 NG/ML
[2019-09-03] MEDS ORDERED: cefTRIAXone 1,000 MG in SODIUM CHLORIDE 0.9% 100 ML IV STA (18:07)
[2019-09-03] MEDS ORDERED: AZITHROMYCIN INJ 500 MG in SODIUM CHLORIDE 0.9% 250 ML IV STA (18:07)
[2019-09-03] MEDS ORDERED: BISACODYL 5 MG TABLET PO PRN (18:27)
[2019-09-03] MEDS ORDERED: LACTULOSE 20 GM/30 ML UDCUP PO PRN (18:27)
[2019-09-03] MEDS ORDERED: ACETAMINOPHEN 325 MG TABLET PO PRN (18:27)
[2019-09-03] MEDS ORDERED: DOCUSATE SODIUM 100 MG CAPSULE PO PRN (18:27)
[2019-09-03] MEDS ORDERED: NITROGLYCERIN SL 0.4 MG TABLET SL PRN (18:32)
[2019-09-03] MEDS: ALBUTEROL/IPRATROPIUM 3 ML NEB RESP TX SCH ×2 (21:09→23:12)
[2019-09-03] MEDS: ATORVASTATIN 20 MG TABLET PO SCH (21:35)
[2019-09-03] MEDS: ASCORBIC ACID 500 MG TABLET PO SCH (21:35)
[2019-09-03] MEDS: ASPIRIN EC 81 MG TABLET PO SCH (21:35)
[2019-09-03] MEDS: DOXYCYCLINE HYCLATE 100 MG CAPSULE PO SCH (21:36)
[2019-09-03] MEDS: DILTIAZEM CD 240 MG CAPSULE PO SCH (21:40)
[2019-09-03] MEDS: ENOXAPARIN 40 MG/0.4 ML SYRINGE SUBCUT SCH (21:42)
[2019-09-04] MEDS ORDERED: INFLUENZA VIRUS VACCINE 0.5 ML SYRINGE IM ONE (01:12)
[2019-09-04] MEDS: ALBUTEROL/IPRATROPIUM 3 ML NEB RESP TX SCH ×4 (02:50→17:04)
[2019-09-04 05:37] LABS: Basophils # 0.1 10*3/uL (0.0-0.2); Basophils % 0.4 % (0.0-0.8); Eosinophils # 0.6 10*3/uL (0.0-0.87); Eosinophils % 4.9 % (0.00-10.9); Hematocrit 28.9 VOL% (42.0-52.0); Immature Granulocytes % 0.7 %; Immature Granulocytes Absolute 0.09 #; Lymphocytes # 1.8 10*3/uL (1.4-4.0); Lymphocytes % 14.8 % (21.2-54.2); Mean Corpuscular HGB Conc 31.1 GM/DL (32-36); Mean Corpuscular Volume 94.1 FL (87-102); Mean Platelet Volume 10.1 FL (9.6-12.0); Monocytes % 8.5 % (1.7-12.7); Neutrophils % 70.7 % (38.7-73.9); Platelet Count 353 T/CUMM (130-400); Red Blood Count 3.07 MC/CUMM (3.8-5.5); Red Cell Distribution Width 15.4 % (9.3-17.3); White Blood Count 12.1 T/CUMM (4-12)
[2019-09-04 05:53] LABS: Calcium 8.4 MG/DL (8.5-10.1); Osmolality,Calculated 279.4 MOS/KG (273-304)
[2019-09-04] MEDS: DOXYCYCLINE HYCLATE 100 MG CAPSULE PO SCH ×2 (08:32→20:28)
[2019-09-04] MEDS: ASCORBIC ACID 500 MG TABLET PO SCH ×2 (08:33→20:28)
[2019-09-04] MEDS: carvediloL 3.125 MG TABLET PO SCH ×2 (08:33→18:20)
[2019-09-04] MEDS: AMIODARONE 200 MG TABLET PO SCH (08:33)
[2019-09-04] MEDS ORDERED: AZITHROMYCIN 250 MG TABLET PO SCH (14:00)
[2019-09-04] MEDS: cefTRIAXone 2,000 MG in SYRINGE 1 EACH IV SCH (18:32)
[2019-09-04] MEDS: LEVALBUTEROL 1.25 MG/3 ML NEB RESP TX PRN (19:23)
[2019-09-04] MEDS: BENZONATATE 100 MG CAPSULE PO PRN (20:27)
[2019-09-04] MEDS: DILTIAZEM CD 240 MG CAPSULE PO SCH (20:28)
[2019-09-04] MEDS: ATORVASTATIN 20 MG TABLET PO SCH (20:28)
[2019-09-04] MEDS: ASPIRIN EC 81 MG TABLET PO SCH (20:28)
[2019-09-04] MEDS: ENOXAPARIN 40 MG/0.4 ML SYRINGE SUBCUT SCH (20:28)
[2019-09-05] MEDS: ASCORBIC ACID 500 MG TABLET PO SCH ×2 (08:15→21:35)
[2019-09-05] MEDS: DOXYCYCLINE HYCLATE 100 MG CAPSULE PO SCH ×2 (08:15→21:35)
[2019-09-05] MEDS: carvediloL 3.125 MG TABLET PO SCH ×2 (08:16→18:11)
[2019-09-05] MEDS: AMIODARONE 200 MG TABLET PO SCH (08:16)
[2019-09-05 10:00] LABS: Osmolality,Calculated 274.8 MOS/KG (273-304)
[2019-09-05] MEDS: LEVALBUTEROL 1.25 MG/3 ML NEB RESP TX PRN ×2 (10:17→21:04)
[2019-09-05 10:56] LABS: Basophils # 0.1 10*3/uL (0.0-0.2); Basophils % 0.4 % (0.0-0.8); Eosinophils # 0.7 10*3/uL (0.0-0.87); Eosinophils % 5.9 % (0.00-10.9); Hematocrit 33.9 VOL% (42.0-52.0); Immature Granulocytes % 0.8 %; Immature Granulocytes Absolute 0.09 #; Lymphocytes # 0.9 10*3/uL (1.4-4.0); Lymphocytes % 7.7 % (21.2-54.2); Mean Corpuscular HGB Conc 31.3 GM/DL (32-36); Mean Corpuscular Volume 92.4 FL (87-102); Mean Platelet Volume 10.1 FL (9.6-12.0); Monocytes % 8.3 % (1.7-12.7); Neutrophils % 76.9 % (38.7-73.9); Platelet Count 441 T/CUMM (130-400); Red Blood Count 3.67 MC/CUMM (3.8-5.5); Red Cell Distribution Width 15.4 % (9.3-17.3); White Blood Count 11.4 T/CUMM (4-12)
[2019-09-05 11:07] LABS: Hemoglobin 10.6 GM/DL (14.0-18.0)
[2019-09-05] MEDS: cefTRIAXone 2,000 MG in SYRINGE 1 EACH IV SCH (18:05)
[2019-09-05] MEDS: DILTIAZEM CD 240 MG CAPSULE PO SCH (21:34)
[2019-09-05] MEDS: BENZONATATE 100 MG CAPSULE PO PRN (21:35)
[2019-09-05] MEDS: ENOXAPARIN 40 MG/0.4 ML SYRINGE SUBCUT SCH (21:35)
[2019-09-05] MEDS: ATORVASTATIN 20 MG TABLET PO SCH (21:35)
[2019-09-05] MEDS: ASPIRIN EC 81 MG TABLET PO SCH (21:35)
[2019-09-06 04:51] LABS: Basophils % 0.4 % (0.0-0.8); Eosinophils # 0.7 10*3/uL (0.0-0.87); Eosinophils % 6.9 % (0.00-10.9); Hematocrit 31.2 VOL% (42.0-52.0); Hemoglobin 9.7 GM/DL (14.0-18.0); Immature Granulocytes % 0.8 %; Immature Granulocytes Absolute 0.08 #; Lymphocytes # 1.5 10*3/uL (1.4-4.0); Lymphocytes % 15.3 % (21.2-54.2); Mean Corpuscular HGB Conc 31.1 GM/DL (32-36); Mean Corpuscular Volume 92.3 FL (87-102); Mean Platelet Volume 10.3 FL (9.6-12.0); Monocytes % 9.3 % (1.7-12.7); Neutrophils % 67.3 % (38.7-73.9); Platelet Count 387 T/CUMM (130-400); Red Blood Count 3.38 MC/CUMM (3.8-5.5); Red Cell Distribution Width 15.3 % (9.3-17.3); White Blood Count 9.8 T/CUMM (4-12)
[2019-09-06 05:19] LABS: Albumin 2.8 G/DL (3.4-5.0); Bilirubin,Total 1.2 MG/DL (0.2-1.0); Calcium 8.3 MG/DL (8.5-10.1); Osmolality,Calculated 274.7 MOS/KG (273-304); Total Protein 6.3 G/DL (6.4-8.3)
[2019-09-06] MEDS: DOXYCYCLINE HYCLATE 100 MG CAPSULE PO SCH (08:24)
[2019-09-06] MEDS: carvediloL 3.125 MG TABLET PO SCH (08:24)
[2019-09-06] MEDS: AMIODARONE 200 MG TABLET PO SCH (08:24)
[2019-09-06] MEDS: ASCORBIC ACID 500 MG TABLET PO SCH (08:26)
[2019-09-06 11:13] VITALS: BP 110/67
== END 2019-09-06 14:30 | disposition home health service (06) | DRG 195 ==
LOC: N.EDINP 16:13 → N.ED 16:13 → N.EDINP 19:18 → N.5E 20:12
PROVIDERS: ADMIT Family Medicine; ATTEND Family Medicine